=== PATIENT | male | born 1965 | race Asian ===

== ENCOUNTER 2019-06-09 18:09 | Emergency (ER) | payer OTHER ==
[~2019-06-09] VITALS: Ht 170.2 cm; Wt 81.2 kg
[~2019-06-09 18:09] MED LIST: ATOR20TA38 PO; CLOP75TA27 PO; HYDR25TA6 PO; LISI-471 PO
[2019-06-09 18:28] VITALS: Ht 170.2 cm; Wt 81.2 kg
[2019-06-09] MEDS ORDERED: NICARDipine HCL 30 MG CAPSULE PO ONE (19:30)
[2019-06-09 20:40] VITALS: BP 162/90; PULSE 91; RESP 16
== END 2019-06-09 20:45 | disposition home or self-care (01) ==
LOC: E/R 18:09
DX: I10 Essential (primary) hypertension (principal); F17.210 Nicotine dependence, cigarettes, uncomplicated; Z79.01 Long term (current) use of anticoagulants
CPT/HCPCS: Z7502; Z7610; 99283